=== PATIENT | male | born 1970 | race Caucasian/White ===

== ENCOUNTER 2017-01-15 18:23 | Emergency (ER) | payer OTHER | END 2017-01-15 19:15 | disposition home or self-care (01) | LOC: CED 18:23 → CFTX 18:23 | DX: S80.872A Other superficial bite, left lower leg, initial encounter (principal); Z23 Encounter for immunization; W54.0XXA Bitten by dog, initial encounter; Y92.69 Other specified industrial and construction area as the place of occurrence of the external cause; Y99.0 Civilian activity done for income or pay | CPT/HCPCS: 90471; 90715; 99283 ==